=== PATIENT | female | born 1960 | race Caucasian/White ===

== ENCOUNTER 2022-12-31 05:55 | Day surgery (SDC) | payer BC, SELFPAY ==
[2022-12-31] VITALS (8 sets, daily range): BP systolic 110–139; BP diastolic 55–96; PULSE 64–85; RESP 16–18; TEMP 36–36.9; O2SAT 92–100; BMI 29.2
--- NOTE | 2022-12-31 | GALL_PTH ---
PATIENT: SHERYL ORTIZ LOC: [facility] [place] U#:[id number] AGE/SX: 62/F ROOM: RE12/31/[address]: Dr. Maribeth Maloney MD : 1960 BED: DIS: 12/31/2022 SPEC #: [id number] RECD: 12/31/22 10:40 STATUS: HANS VAHE #: [id number] ERIKA: 12/31/22 00:[address]: Maribeth Maloney DEPT: SURGICAL PATHOLOGY RECD BY: Juan Wong ENTERED: 12/31/22 10:40 SP TYPE: XIOMY ELLSWORTH DR: Dr. Last Dorsey MD Tissues: Gallbladder, NOS Procedures: Surgery Specimen Level III HEADER OPERATION: Laparoscopic cholecystectomy PRE-OP DIAGNOSIS: Cholelithiasis TISSUE SUBMITTED: Gallbladder MICROSCOPIC DIAGNOSIS Gallbladder, cholecystectomy: Chronic cholecystitis and cholelithiasis. A benign pericystic lymph node. SJ:radha 01/01/2023 MICROSCOPIC DESCRIPTION Slides are reviewed. GROSS DESCRIPTION Received is one container labeled with the patient's name and designated gallbladder. The specimen consists of a previously opened gallbladder measuring 9.0 cm in length and up to 2.5 cm in diameter. The external surface is pink-fournier, smooth and glistening for the most part. Focally it is granular, hemorrhagic and contains cautery artifact. The gallbladder contains green-yellow mucoid bile. Present in the container and also in the gallbladder are multiple multifaceted yellowish-orange stones measuring in aggregate 7.0 x 6.0 x 2.5 cm and 0.3 to 2.0 cm in greatest dimension. The mucosa is bile-stained and without any mass lesions. The gallbladder wall measures up to 0.2 cm in thickness. Also present close to the cystic duct is a pink nodule, a possible lymph node, measuring 0.5 cm in greatest dimension. News Writer sections from the gallbladder and the cystic duct including possible lymph node are submitted in one cassette. / SJ:rg 12/31/2022 TC:3 CPT: 46055
--- NOTE | 2022-12-31 06:09 | EKG12_ITS ---
Test Reason : PRE OP Blood Pressure : / mmHG Vent. Rate : 078 BPM Atrial Rate : 078 BPM P-R Int : 146 ms QRS Dur : 096 ms QT Int : 408 ms P-R-T Axes : 060 001 028 degrees QTc Int : 465 ms Normal sinus rhythm Normal ECG No previous ECGs available Confirmed by YOHANA RIBERA, EDENILSON ([id number]), editorial assistant MONSTER GALVEZ ([id number]) on 01/02/2023 1:42:06 PM Referred By: Maribeth Maloney Confirmed By:EDENILSON MULLER MD
[2022-12-31] MEDS: Ciprofloxacin 400 MG/200 ML BAG 200 MG IV (06:31)
[2022-12-31] MEDS: Lactated Ringers 1,000 ML 15 ML IV (06:34)
--- NOTE | 2022-12-31 07:05 | HP.PCM_ITS ---
History and Physical Date of Admission: 12/31/22 Date of Service: 12/19/22 MR#: [id number] Acct: [id number] Name: SHERYL ORTIZ Rep #: [id number] : 1960 Provider: Dr. Maribeth Maloney MD Age/Sex: 62/F Location: [facility] Status: Signed with Addenda ADDENDUM by Dr. Maribeth Maloney MD on 12/20/22 at 0806 Intake Chief Complaint: gallbaldder problems Allergies azithromycin [From Zithromax] Allergy (Intermediate, Verified 12/19/22 15:03) Rashclarithromycin Allergy (Intermediate, Verified 12/19/22 15:03) RashSulfa (Sulfonamide Antibiotics) Allergy (Intermediate, Verified 12/19/22 15:03) Rashcefaclor Allergy (Mild, Verified 12/19/22 15:03) Rasherythromycin base Allergy (Mild, Verified 12/19/22 15:03) Rashamoxicillin Allergy (Intermediate, Uncoded 12/19/22 15:03) Rashminocin Allergy (Intermediate, Uncoded 12/19/22 15:03) Rash Medications cholecalciferol (vitamin D3) 25 mcg (1,000 unit) capsule 25 mcg PO DAILY 12/19/22 [History Confirmed 12/19/22] diltiazem HCl 360 mg capsule,extended release 24 hr 360 mg PO DAILY 12/19/22 [History Confirmed 12/19/22] pantoprazole 40 mg tablet,delayed release 40 mg PO DAILY #30 tabs 12/19/22 [Rx Confirmed 12/19/22] valsartan 320 mg tablet 320 mg PO DAILY 12/19/22 [History Confirmed 12/19/22] Assessment and Plan Assessment and Plan (1) Cholelithiasis: Status: Acute (2) GERD (gastroesophageal reflux disease): Status: Acute (3) Abdominal pain: Status: Acute Medications: New pantoprazole 40 mg PO DAILY 30 tabs 1RF Plan Correction?reviewed patient's MRI of the abdomen which was done in early 2022, patient's CAT scan was also reviewed that that was from 2018. 12/20/22 0806 <Electronically signed by Maribeth Maloney MD> Date Maribeth Maloney MD cc: Dr. Last Dorsey MD ~* Signed Intake Vital Signs 12/19/2313:59 Weight: 164 lb BP 135/83 H Blood Pressure Location Rt brachial Position Sitting Respiration 17 Pulse 70 Pulse Source Monitor Temp 97.4 F L Temp Source Temporal Pulse Oximetry (%) 97 Oxygen Delivery Method room air Intake Visit Reasons: Gallbladder problems Chief Complaint: gallbaldder problems Is patient in pain?: Yes Allergies azithromycin [From Zithromax] Allergy (Intermediate, Verified 12/19/22 15:03) Rashclarithromycin Allergy (Intermediate, Verified 12/19/22 15:03) RashSulfa (Sulfonamide Antibiotics) Allergy (Intermediate, Verified 12/19/22 15:03) Rashcefaclor Allergy (Mild, Verified 12/19/22 15:03) Rasherythromycin base Allergy (Mild, Verified 12/19/22 15:03) Rashamoxicillin Allergy (Intermediate, Uncoded 12/19/22 15:03) Rashminocin Allergy (Intermediate, Uncoded 12/19/22 15:03) Rash Medications cholecalciferol (vitamin D3) 25 mcg (1,000 unit) capsule 25 mcg PO DAILY 12/19/22 [History Confirmed 12/19/22] diltiazem HCl 360 mg capsule,extended release 24 hr 360 mg PO DAILY 12/19/22 [History Confirmed 12/19/22] pantoprazole 40 mg tablet,delayed release 40 mg PO DAILY #30 tabs 12/19/22 [Rx Confirmed 12/19/22] valsartan 320 mg tablet 320 mg PO DAILY 12/19/22 [History Confirmed 12/19/22] PFSH Surgical History (Updated 12/20/22 @ 08:[address] Maribeth Maloney MD) History of colectomy Social History (Updated 12/19/22 @ 14:59 by Guillermina Weston) Smoking Status: Never smoker alcohol intake: current substance use type: does not use HPI HPI HPI: 62-year-old female presents due to cholelithiasis and right upper quadrant pain. Patient states that this has been ongoing since about April and again it did get worse in November as well. Patient was originally scheduled on October [address] Peterson for laparoscopic cholecystectomy however due to recurrent UTIs that was canceled. Patient tried to reschedule it quite a while before patient would be able to have surgery due to or schedule. Patient had an ultrasound shows multiple stones in the gallbladder normal wall, normal common bile duct. No pericholecystic fluid. Patient states her right upper quadrant is sore for much all the time nauseated most the time which she states may have gotten a little better recently and also denies any vomiting currently. Patient states that this got worse again in November she was not really able to eat. Patient denies any pain waking her up in the middle night however she does have nausea in the morning upon when she wakes patient does admit to some reflux depending on what she eats. Patient has never had an EGD only had a colonoscopy when she had a colectomy in her 30s. Patient was scheduled also for colonoscopy but due to the recurrent UTI that was also canceled at that time. Patient states she is able to eat does not really notice a big difference in the pain due to eating including salad dressings, Posta, spicy barbecue sauce. Patient was in [place] initially after her increased pain in November on vacation. Patient has bowel movements daily. Current symptoms: Denies constipation Associated symptoms: Denies constipation or diarrhea ROS General General: Yes fatigue; No weight change, appetite, colon cancer or breast cancer HEENT HEENT: No difficulty swallowing, eye injury, eye surgery, swollen glands or hoarseness Endo Endocrine: No thyroid disease, diabetes mellitus, thyroid cancer, Hair loss, heat intolerance or cold intolerance Skin Skin: No rash or changing moles Musc Musculoskeletal: No back problems, arthritis, rheumatoid arthritis, gout or joint pain Cardio Cardiovascular: Yes high blood pressure; No murmur, pacemaker, heart disease, atrial fibrillation, heart attack, heart s tent, palpitations, shortness of breat with exertion or chest pain Psych Psychiatric: No depression, anxiety or hearing voices Resp Respiratory: No shortness of breath, No sleep apnea, No cough, No COPD, No asthma, No emphysema and No wheezing Gastro Gastrointestinal: Yes abdominal pain, Yes nausea or vomiting, No diarrhea, No constipation, No blood in stool, No acid reflux, No hemorrhoids, No ulcers, Yes gallbladder problem and No black,tarry stools Jeff Hematologic: No blood thinners, No blood disorders, No bleeding, No anemia and No blood clots Neuro Neurologic: No numbness and No tingling Exam Const General: cooperative, healthy appearing, comfortable and no acute distress [facility] Head: normocephalic and atraumatic Neck Neck: supple Resp Effort & Inspection: normal respiratory effort Cardio Rate: regular rate GI Inspection: non-distended Palpation: soft, no guarding, no hernias and tender in the epigastrum and in the RUQ; with no rebound tenderness Skin General: no rashes or lesions noted Neuro General: CN's II-XI intact bilaterally Extrem General: normal to inspection Psych Mental Status: mental status grossly normal Attitude: cooperative Assessment and Plan Assessment and Plan (1) Cholelithiasis: Status: Acute (2) GERD (gastroesophageal reflux disease): Status: Acute (3) Abdominal pain: Status: Acute Medications: New pantoprazole 40 mg PO DAILY 30 tabs 1RF Plan Personally reviewed patient's CT abdomen pelvis as well as ultrasounds and reviewed with patient. Discussed with patient that her pain does not seem to be straightforward as she is able to eat various food that usually causes an issue with either stomach or the gallbladder. Patient's ultrasounds as well as CT scans showed gallbladder filled with stones, normal wall, no pericholecystic fluid, normal CBD. Will have patient take Protonix 40 mg/day with Pepcid the first couple days and will schedule for a laparoscopic cholecystectomy with cholangiogram. Patient was agreeable with plan. Reviewed the anatomy with the patient and discussed the procedure: laparoscopic cholecystectomy with cholangiograms, possible open. Review risks including but not limited to bleeding, infection, hernia, bile leak, retained gallstones requiring another procedure ERCP- Endoscopic Retrograde Cholangiopancreatography, injury to another organ (bile ducts, common bile duct, small bowel, etc.) and conversion to an open procedure. All questions were answered. Maribeth Maloney M.D. Pager: [phone] [facility] [address] [place] [address], [address] [place] [address] Office: [phone] Coding Level of Care Code Off vis,new,level 4 Diagnoses Cholelithiasis K80.20 GERD (gastroesophageal reflux disease) K21.9 Abdominal pain R10.9 12/20/22 0805 <Electronically signed by Maribeth Maloney MD> Date Maribeth Maloney MD
[2022-12-31] MEDS: metroNIDAZOLE 500 MG/100 ML BAG 100 MG IV (07:40)
--- NOTE | 2022-12-31 09:14 | OP.PCM_ITS ---
Report of Operation Date of Procedure: 12/31/22 Pre-Operative Diagnosis: Right upper quadrant pain, cholelithiasis Post-Operative Diagnosis: Same Surgery/Procedure Performed:: Laparoscopic cholecystectomy Surgeon: Maribeth Maloney range conservationist: Kristy Garcia Type of Anesthesia: General/Supplemental Anesthesiologist: Salvatore Valdes Special Medications: Cipro 400 mg IV x1, Flagyl 500 mg x 1 Specimen's removed: Gallbladder and stones Estimated Blood Loss (mL): 10 cc Description of Procedure: Indications: this is a 62 year-old female who developed abdominal pain/nausea/vomiting and on workup was found to have right upper quadrant pain, cholelithiasis, with a normal common bile duct. Laparoscopic cholecystectomy was elected. Description procedure: The patient was placed on operating table in supine position. A timeout was completed verifying correct patient, procedure, site, position and special equipment prior to beginning procedure. General Anesthesia was induced. The abdomen was prepped and draped in usual sterile fashion. An incision was made in the natural skin line above the umbilicus. The fascia was elevated and incised. The peritoneum was elevated and incised. Entry into the peritoneum was confirmed visually and no bowel was noted in the vicinity of the incision. Blevins trocar was placed. The abdomen was insufflated with carbon dioxide to a pressure of 12-15 mmHg. Patient tolerated insufflation well. The laparoscope was then inserted and a bdomen inspected. No injuries from initial trocar placement were noted. Additional trochars were then inserted in the following locations 5 mm trocar in the epigastrium and 2 more 5 mm trochars along the right costal margin. The abdomen was inspected no abnormalities were found. The table is placed in reverse Trendelenburg position with the right side up. The dome of the gallbladder was grasped with atraumatic grasper passed through the lateral port and retracted over the dome of the liver. Infundibulum was then grasped with atraumatic grasper through the midclavicular port and retracted to the right lower quadrant. This maneuver exposed Calot's triangle. The peritoneum overlying the gallbladder infundibulum was then incised and cystic duct and artery identified and circumferentially dissected. The cystic duct and artery were then doubly clipped and divided close to the gallbladder. The gallbladder then dissected from its peritoneal attachments by electrocautery. Hemostasis was checked and the gallbladder and contained stones were removed using the endoscopic retrieval bag through the umbilical port after enlarging it slightly due to stones. The gallbladder is passed off table as specimen. The gallbladder fossa was irrigated with saline and hemostasis obtained. There is no evidence of bleeding from the gallbladder fossa or cystic artery leakage of bile from the cystic duct stump. Secondary trochars removed under direct vision. No bleeding was noted the trocar sites. The laparoscope was withdrawn and umbilical trocar removed. The abdomen was allowed to collapse. The fascia of the 12 mm trocar was closed with 2 [id number] 0 Vicryl sutures. The skin was closed with sutures of 4-0 Monocryl and Steri-Strips. The patient was extubated. The patient tolerated procedure well and was taken to the postanesthesia care unit in stable condition. Complications none
[2022-12-31] MEDS: Bupivacaine Mpf 0.5% 30 ML VIAL (09:17)
--- NOTE | 2022-12-31 09:17 | DCINST_ITS ---
Discharge Instructions Diet Discharge Diet: Light diet - advance as tolerated Activity Discharge Activity: May Not Drive (while taking narcotic pain medications.) May shower in (days): 1 Lifting Restrictions: no lifting >20 lbs x 2 wks, no strenuous exercise for 4 wks Dressing / Incision Call your doctor if your incision/area has: Continuous Slow Oozing, Sudden Increased Bleeding, Increased Pain/ Swelling, Increased Redness, Foul Smelling Discharge and Swelling at the incision site Call your doctor if you observe: Fever of 101 or Higher Remove Dressing in: 2 days Cleanse incision/area with: Soap & Water Additional Dressing/Incision Instructions:: Steri-Strips will fall off in 7 to 10 days, if they do not fall off okay to remove after 10 days. Follow Up Care Please Follow Up With: Maribeth Maloney MD When: Call the office for a follow-up appointment 2 weeks; after 5 PM and on the weekends call [phone] with any concerns. Test Results: Test results from this visit will be discussed in further detail at your follow- up appointment, if applicable. Discharge Plan Admission Attending Provider: Maribeth Maloney Primary Care Provider: Last Dorsey Discharge Orders/Prescriptions Prescriptions: No Action valsartan 320 mg tablet 320 mg PO DAILY diltiazem HCl 360 mg capsule,extended release 24hr 360 mg PO DAILY cholecalciferol (vitamin D3) 25 mcg (1,000 unit) capsule 25 mcg PO DAILY pantoprazole 40 mg tablet,delayed release (DR/EC) 40 mg PO DAILY Qty: 30 1RF Referrals / Follow Up: Last Dorsey MD [Primary Care Provider] - Disposition Disposition (needs filled in before D/C Order can be placed): Home, Self Care
[2022-12-31] MEDS: Ketorolac 30 MG/ML Syringe IV (10:00)
[2022-12-31] MEDS: traMADol 50 MG Tablet PO (10:50)
== END 2022-12-31 12:29 | disposition home or self-care (01) ==
LOC: SDC 06:00 → AC 06:02
PROVIDERS: PCP Internal Medicine; Referring Provider Surgery; Visit Provider Surgery
PROC: (CPT 47610; principal; 2022-12-31 07:10)
DX: K80.10 Calculus of gallbladder with chronic cholecystitis without obstruction (principal); K21.9 Gastro-esophageal reflux disease without esophagitis; R10.9 Unspecified abdominal pain; Z87.442 Personal history of urinary calculi
CPT/HCPCS: 47562; 00790; 88304; 93005; J7120; J0744; J2405